=== PATIENT | male | born 1945 | race Caucasian/White ===

== ENCOUNTER → 2016-08-28 | Outpatient (CLI) | payer OTHER ==
--- NOTE | 2016-08-28 13:50 | Diagnostic Imaging Report ---
INDICATION: Hemoptysis post surgery. FINDINGS: The lungs are clear. The heart size and vascularity are normal. There is no effusion or pneumothorax. There is mild elevation of the right diaphragm noted. The hilar and mediastinal contours are normal. No failure or pneumonia. IMPRESSION: No acute appearing abnormality. Dictated by: Dictated on workstation # [id number]
--- NOTE | 2016-08-28 13:59 | Diagnostic Imaging Report ---
PROCEDURE: CT sinuses without contrast TECHNIQUE: Multiple contiguous axial images were obtained through the sinuses without the use of intravenous contrast. Coronal and sagittal reformations were then performed. INDICATION: Chronic sinusitis. FINDINGS: There is mild mucosal thickening in the anterior ethmoidal air cells. The sphenoidal sinuses appear clear. The maxillary sinuses demonstrate minimal mucosal thickening inferiorly on the left side and minimal mucosal thickening along the ostiomeatal complex bilaterally without definite obstruction. The frontal sinuses appear clear. The mastoid air cells and middle ear cavity on the right are clear. The middle ear cavity on the left is clear. There is minimal mucosal thickening inferiorly in the left mastoid air cells. The nasal septum is deviated to the right side. There is mucosal thickening in the inferior turbinates with slight narrowing of the nasal passages on the right. There is deformity in the nasal bones compatible with an old fracture. IMPRESSION: Minimal mucosal thickening in the anterior ethmoidal air cells, the maxillary sinuses and in the inferior aspect of the left mastoid air cells. There is also nasal septal deviation and mucosal thickening in the inferior turbinates narrowing the right nasal passages. Dictated by: Dictated on workstation # [id number]
== END ==
LOC: RAD 11:15
PROVIDERS: ATTEND Otolaryngology Otolaryngology/Facial Plastic Surgery
DX: J34.2 Deviated nasal septum (principal); R04.2 Hemoptysis; Z98.890 Other specified postprocedural states
CPT/HCPCS: 70486; 71020